=== PATIENT | female | born 1990 ===

== ENCOUNTER 2018-07-24 19:59 | Outpatient (CLI) | payer OTHER ==
--- NOTE | 2018-07-25 03:43 | Ultrasound Report ---
Reason: OTH COND ASSOC W FEMALE GENITAL ORGANS MENSTRUAT Procedure Date: 07/24/2018 Accession Number: [id number] Procedure: US - Pelvic w/Transvaginal CPT Code: FULL RESULT: EXAM: PELVIC ULTRASOUND EXAM DATE: 07/24/2018 08:47 PM. CLINICAL HISTORY: Irregular periods. COMPARISON: None. TECHNIQUE: Realtime transabdominal pelvic scan performed to identify the uterus and adnexa and as an overview of other pelvic structures, followed by transvaginal scan to provide greater detail of the uterus and adnexa, with static image documentation. FINDINGS: Uterus: 7.5 x 3.9 x 2.9 cm, volume 44.1 cc. Anteverted position. Normal overall size and echotexture. Masses: None. Endometrium: 4 mm. Normal. Cervix: Unremarkable. Right Ovary: 3.1 x 2.7 x 2.3 cm, volume 10.0 cc. Normal echotexture and blood flow. Left Ovary: 2.6 x 2.8 x 2.1 cm, volume 6.81 cc. Normal echotexture and blood flow. Free Fluid: None. Other: None. IMPRESSION: Normal pelvic ultrasound. [facility]
== END 2018-07-24 20:00 | disposition home or self-care (01) ==
LOC: DI 19:59
PROVIDERS: ATTEND Registered Nurse
DX: N94.89 Other specified conditions associated with female genital organs and menstrual cycle (principal)
CPT/HCPCS: 76830; 76856

== ENCOUNTER 2019-03-10 08:00 | Outpatient (CLI) | payer OTHER ==
[2019-03-10 19:03] LABS: BASOPHILS % (AUTO) 0.5 %; EOSINOPHILS # (AUTO) 0.2 10^3/uL (0.0-0.7); EOSINOPHILS % (AUTO) 2.1 %; HGB - HEMOGLOBIN 12.2 g/dL (12.0-16.0); LYMPHOCYTES % (AUTO) 40.9 %; MEAN CORPUSCULAR HGB CONC 33.2 g/dL (32.0-36.0); MEAN CORPUSCULAR VOLUME 90.6 fL (81.0-99.0); MEAN PLATELET VOLUME 9.1 fL (7.9-10.8); MONOCYTES # (AUTO) 0.4 10^3/uL (0.0-1.0); MONOCYTES % (AUTO) 5.7 %; NEUTROPHILS # (AUTO) 3.7 10^3/uL (1.5-6.6); NEUTROPHILS % (AUTO) 50.8 %; PLT - PLATELET COUNT 329 10^3/uL (130-450); RED BLOOD COUNT 4.07 10^6/uL (4.20-5.40); RED CELL DISTRIBUTION WIDTH 13.6 % (12.0-15.0); WHITE BLOOD COUNT 7.4 x10^3/uL (4.8-10.8)
== END 2019-03-10 23:59 | disposition home or self-care (01) ==
LOC: LAB.WCP 08:00
PROVIDERS: ATTEND Internal Medicine Gastroenterology
DX: K62.5 Hemorrhage of anus and rectum (principal)
CPT/HCPCS: 36415; 85025

== ENCOUNTER 2019-03-19 12:30 | Day surgery (SDC) | payer OTHER ==
[2019-03-19] MEDS ORDERED: LACTATED RINGERS 1,000 ML IV ONE (13:25)
[2019-03-19 13:55] LABS: HCG UR QUAL NEGATIVE
[2019-03-19] MEDS ORDERED: MIDAZOLAM 2 MG/2 ML VIAL IVP ONE (14:41)
[2019-03-19] MEDS ORDERED: fentaNYL 250 MCG/5 ML VIAL IVP ONE (14:41)
[2019-03-19 15:56] VITALS: BP 110/34
== END 2019-03-19 12:31 | disposition home or self-care (01) ==
LOC: SDS 12:30
PROVIDERS: ATTEND Internal Medicine Gastroenterology
PROC: 0DJD8ZZ Inspection of Lower Intestinal Tract, Via Natural or Artificial Opening Endoscopic (ICD-10-PCS; principal; 2019-03-19 13:15)
DX: K62.5 Hemorrhage of anus and rectum (principal); K59.09 Other constipation; J45.998 Other asthma; Z79.52 Long term (current) use of systemic steroids; Z79.51 Long term (current) use of inhaled steroids; Z87.01 Personal history of pneumonia (recurrent)
CPT/HCPCS: 45378; 81025; J3010; J7120

== ENCOUNTER 2019-09-14 07:00 | Outpatient (CLI) | payer OTHER ==
[2019-09-14 21:42] LABS: H. PYLORIS ANTIGEN STL NEGATIVE (Negative)
== END 2019-09-14 23:59 | disposition home or self-care (01) ==
LOC: LAB.R 07:00
PROVIDERS: ATTEND Physician Assistant Medical
DX: K62.5 Hemorrhage of anus and rectum (principal); R10.13 Epigastric pain
CPT/HCPCS: 81599; 83630; 87045; 87046; 87177; 87209; 87329; 87338

== ENCOUNTER 2021-01-03 15:15 | Outpatient (CLI) | payer OTHER ==
[2021-01-04 20:58] LABS: BACTERIAL VAGINOSIS DNA NEGATIVE (NEGATIVE); CANDIDA GLABRATA DNA NEGATIVE (NEGATIVE); CANDIDA GROUP DNA NEGATIVE (NEGATIVE); CANDIDA KRUSEI DNA NEGATIVE (NEGATIVE); TRICHOMONAS VAGINALIS DNA NEGATIVE (NEGATIVE)
[2021-01-04 21:48] LABS: NEISSERIA GONORRHOEAE DNA NEGATIVE (NEGATIVE); TRICHOMONAS VAGINALIS DNA NEGATIVE (NEGATIVE)
[2021-01-04 22:07] LABS: CHLAMYDIA TRACHOMATIS DNA POSITIVE (NEGATIVE)
== END 2021-01-03 15:16 | disposition home or self-care (01) ==
LOC: LAB.R 15:15 → LAB.N 01-04 16:30
PROVIDERS: ATTEND Obstetrics & Gynecology
DX: N90.89 Other specified noninflammatory disorders of vulva and perineum (principal); Z11.3 Encounter for screening for infections with a predominantly sexual mode of transmission
CPT/HCPCS: 36415; 81599; 86592; 86803; 87255; 87340; 87389; 87491; 87591; 87661; 87801

== ENCOUNTER 2021-01-04 16:30 | Outpatient (CLI) | payer OTHER ==
[2021-01-10 11:53] LABS: HEPATITIS C ANTIBODY NON-REACTIVE; HIV AG/AB 4TH GEN NON-REACTIVE
[2021-01-10 11:54] LABS: HEPATITIS B SURFACE ANTIGEN NON-REACTIVE
== END 2021-01-04 23:59 | disposition home or self-care (01) ==
LOC: LAB.N 16:30
PROVIDERS: ATTEND Obstetrics & Gynecology
DX: N90.89 Other specified noninflammatory disorders of vulva and perineum (principal); Z11.3 Encounter for screening for infections with a predominantly sexual mode of transmission
CPT/HCPCS: 36415; 86592; 86803; 87340; 87389

== ENCOUNTER 2021-01-30 08:00 | Outpatient (CLI) | payer OTHER ==
[2021-01-31 21:28] LABS: CHLAMYDIA TRACHOMATIS DNA NEGATIVE (NEGATIVE); NEISSERIA GONORRHOEAE DNA NEGATIVE (NEGATIVE); TRICHOMONAS VAGINALIS DNA NEGATIVE (NEGATIVE)
== END 2021-01-30 23:59 | disposition home or self-care (01) ==
LOC: LAB.R 08:00
PROVIDERS: ATTEND Obstetrics & Gynecology
DX: Z11.3 Encounter for screening for infections with a predominantly sexual mode of transmission (principal)
CPT/HCPCS: 87491; 87591; 87661

== ENCOUNTER 2021-02-22 16:22 | Outpatient (CLI) | payer OTHER | END 2021-02-22 16:23 | disposition home or self-care (01) | LOC: LAB.N 16:22 | PROVIDERS: ATTEND Obstetrics & Gynecology | DX: Z11.1 Encounter for screening for respiratory tuberculosis (principal) | CPT/HCPCS: 36415; 86480 ==